=== PATIENT | female | born 1930 | race Caucasian/White ===

== ENCOUNTER → 2017-10-04 | Outpatient (CLI) | payer OTHER ==
[~2017-10-04] MED LIST: LEVOTHYROXIN0.075 MG PO; LISINOPRIL2.5 MG PO; MACROBID 100 M100 M2 PO; METFORMIN HCL500 MG PO; NABUMETONE 750750 M1 PO; OCUVITE TABLET1 EAC1 PO; PRAVACHOL20 MG PO; TOLTERODINE TART2 M1 PO; VITAMIN D 5050000 I1 PO
[2017-10-04 15:54] LABS: CALCIUM 8.9 mg/dL (8.5-10.1); CREATININE 0.9 mg/dL (0.6-1.3); POTASSIUM 4.3 mmol/L (3.5-5.1)
== END ==
LOC: M.CT 10-01 17:00 → M.LAB 15:32 → M.CT 17:00
PROVIDERS: Internal Medicine Nephrology
DX: K44.9 Diaphragmatic hernia without obstruction or gangrene (principal); E87.1 Hypo-osmolality and hyponatremia; R63.4 Abnormal weight loss; M16.0 Bilateral primary osteoarthritis of hip

== ENCOUNTER → 2017-10-09 | Outpatient (CLI) | payer OTHER ==
[2017-10-09 16:12] LABS: CALCIUM 8.7 mg/dL (8.5-10.1); CREATININE 0.9 mg/dL (0.6-1.3); POTASSIUM 4.3 mmol/L (3.5-5.1)
== END ==
LOC: M.LAB 15:51
PROVIDERS: Internal Medicine Nephrology
DX: E87.1 Hypo-osmolality and hyponatremia (principal)

== ENCOUNTER → 2018-05-07 | Outpatient (CLI) | payer OTHER ==
[2018-05-07 17:00] LABS: ABSOLUTE BASOPHILS 0.1 thou/uL (0.0-0.2); ABSOLUTE EOSINOPHILS 0.3 thou/uL (0.0-0.7); ABSOLUTE LYMPHOCYTES 1.5 thou/uL (0.8-5.3); ABSOLUTE MONOCYTES 0.4 thou/uL (0.0-1.2); BASOPHILS 1.7 %; EOSINOPHILS 4.1 %; HEMATOCRIT 39.4 % (37.0-47.0); HEMOGLOBIN 13.7 gm/dL (12.0-15.0); LYMPHOCYTES 23.6 %; MCH 34.8 pg (26.0-34.0); MCHC 34.8 g/dL (28.0-37.0); MCV 99.9 fL (80.0-100.0); MONOCYTES 6.5 %; MPV 6.8 fl. (7.2-11.1); NUCLEATED RBCS 0 /100WBC; PLATELET COUNT* 220 thou/uL (150-400); POLYS 64.1 %; RBC 3.94 mil/uL (4.20-5.00); RDW-CV 12.1 % (10.5-14.5); WBC 6.3 thou/uL (4.0-11.0)
[2018-05-07 17:15] LABS: ALBUMIN 3.7 g/dL (3.4-5.0); CREATININE 0.9 mg/dL (0.6-1.3); POTASSIUM 4.3 mmol/L (3.5-5.1); TOTAL BILIRUBIN 0.6 mg/dL (<0.1-1.0); TOTAL PROTEIN 7.1 g/dL (6.4-8.2)
[2018-05-07 18:00] LABS: ESR (SEDRATE) 1 mm/hr (0-30)
== END ==
LOC: M.LAB 16:42
PROVIDERS: Psychiatry & Neurology Neuromuscular Medicine
DX: M62.81 Muscle weakness (generalized) (principal); G14 Postpolio syndrome; R93.89 Abnormal findings on diagnostic imaging of other specified body structures; R26.9 Unspecified abnormalities of gait and mobility; M21.371 Foot drop, right foot

== ENCOUNTER → 2018-05-14 | Outpatient (CLI) | payer OTHER | LOC: M.MRI 05-01 15:44 | DX: M41.86 Other forms of scoliosis, lumbar region (principal); M47.896 Other spondylosis, lumbar region; M62.81 Muscle weakness (generalized); G14 Postpolio syndrome; R93.89 Abnormal findings on diagnostic imaging of other specified body structures; R26.9 Unspecified abnormalities of gait and mobility; M21.371 Foot drop, right foot ==

== ENCOUNTER → 2019-05-23 | Outpatient (CLI) | payer OTHER | LOC: M.MRI 08:30 | DX: M50.321 Other cervical disc degeneration at C4-C5 level (principal); M12.88 Other specific arthropathies, not elsewhere classified, other specified site; M25.78 Osteophyte, vertebrae; M21.371 Foot drop, right foot; G14 Postpolio syndrome; M41.84 Other forms of scoliosis, thoracic region; K44.9 Diaphragmatic hernia without obstruction or gangrene ==

== ENCOUNTER 2019-06-12 23:45 | Emergency (ER) | payer OTHER ==
[~2019-06-12] VITALS: Ht 162.6 cm; Wt 55.2 kg
[2019-06-13] MEDS ORDERED: PANTOPRAZOLE SO40 M1 PO (00:01)
[2019-06-13] MEDS ORDERED: LEVO-T100 MCG PO (00:01)
[2019-06-13] MEDS ORDERED: MYRBETRIQ25 MG PO (00:02)
[2019-06-13] MEDS ORDERED: NABUMETONE 500500 M2 PO (00:02)
[2019-06-13] MEDS ORDERED: NIFEDIPINE ER30 M1 PO (00:03)
[2019-06-13] MEDS ORDERED: CARBIDOPA-LEVO1 EAC9 PO (00:03)
[2019-06-13] MEDS ORDERED: OCUVITE ADULT1 EAC2 PO (00:04)
[2019-06-13] MEDS ORDERED: CENTRUM ADULTS1 EACH PO (00:04)
[2019-06-13] MEDS ORDERED: LEXAPRO 10 MG T10 M2 PO (00:05)
[2019-06-13 00:22] LABS: ABSOLUTE BASOPHILS 0.1 thou/uL (0.0-0.2); ABSOLUTE EOSINOPHILS 0.4 thou/uL (0.0-0.7); ABSOLUTE LYMPHOCYTES 5.7 thou/uL (0.8-5.3); ABSOLUTE MONOCYTES 0.8 thou/uL (0.0-1.2); ABSOLUTE NEUTROPHILS 3.8 thou/uL (1.6-8.1); BASOPHILS 0.9 %; EOSINOPHILS 3.7 %; HEMATOCRIT 41.7 % (37.0-47.0); HEMOGLOBIN 14.7 gm/dL (12.0-15.0); LYMPHOCYTES 52.9 %; MCH 35.3 pg (26.0-34.0); MCHC 35.1 g/dL (28.0-37.0); MCV 100.4 fL (80.0-100.0); MONOCYTES 7.1 %; MPV 7.5 fl. (7.2-11.1); NUCLEATED RBCS 0 /100WBC; PLATELET COUNT* 222 thou/uL (150-400); POLYS 35.4 %; RBC 4.16 mil/uL (4.20-5.00); RDW-CV 12.3 % (10.5-14.5); WBC 10.7 thou/uL (4.0-11.0)
[2019-06-13 00:33] LABS: INR 1.1; PROTIME 11.1 Seconds (9.20-11.50)
[2019-06-13 00:33] LABS: URINE BILIRUBIN NEGATIVE (Negative); URINE BLOOD NEGATIVE (Negative); URINE CLARITY CLEAR; URINE COLOR YELLOW; URINE GLUCOSE-RANDOM NEGATIVE (Negative); URINE KETONES NEGATIVE (Negative); URINE LEUKOCYTES-REFLEX 1+ (Negative); URINE NITRITE-REFLEX NEGATIVE (Negative); URINE PROTEIN NEGATIVE (Negative); URINE SPECIFIC GRAVITY 1.015 (1.005-1.030); URINE UROBILINOGEN 0.2 E.U./dl (0.2-1.0)
[2019-06-13 00:42] LABS: BACTERIA-REFLEX >30 Many /HPF (None Seen); CASTS None Seen /LPF (None Seen); CRYSTALS None Seen /LPF (None Seen); MUCUS 0-3 Light strn/LPF (None Seen); SQUAMOUS 0-3 Few /LPF (0-3); TRANSITIONAL EPITHEL CELL 0-3 Few /LPF (None Seen); URINE WBC-REFLEX >25 Many /HPF (0-5); WBC CLUMPS Few (None Seen)
[2019-06-13 00:44] LABS: CALCIUM 9.3 mg/dL (8.5-10.1); CREATININE 0.9 mg/dL (0.6-1.3); POTASSIUM 4.1 mmol/L (3.5-5.1)
[2019-06-13 00:55] LABS: ALBUMIN 3.8 g/dL (3.4-5.0); TOTAL BILIRUBIN 0.5 mg/dL (<0.1-1.0)
[2019-06-13 03:35] VITALS: BP 144/81
--- NOTE | 2019-06-13 12:18 | EKG ---
[place] [address] ELECTROCARDIOGRAM REPORT Name: QUINN MERCHANT Room: [facility]#: [id number] Admission: 06/12/19 Attend Phys: Discharge: 06/13/19 Date of : 34 Report #: [id number] THIS REPORT FOR: //name// [facility] ED Test Date: 2019-06-12 Test Time: 23:59:46 Pat Name: QUINN MERCHANT Department: Room: Gender: F Distribution Designer: AKILA : [id number] Requested By: Barbara Jett Order Number: [id number] MD: Jay Bernal Measurements Intervals [place] Rate: 91 P: 65 SC: 157 QRS: 48 QRSD: 91 T: 24 QT: 373 QTc: 459 Interpretive Statements Sinus rhythm Consider left ventricular hypertrophy Repol abnrm suggests ischemia, inferior and anterolateral Compared to ECG 10/06/2015 12:28:35 Early repolarization now present Possible ischemia now present Electronically Signed On 06-13-2019 12:18:01 [employer] by Jay Bernal [email or web address] <ELECTRONICALLY SIGNED> By: Jay Bernal MD, [facility] 06/13/19 1218 [id number] Jay Bernal MD, [facility] /EPI
== END 2019-06-13 03:35 | disposition short-term general hospital (02) ==
LOC: M.ERS 23:45
PROVIDERS: Emergency Medicine
DX: S06.300A Unspecified focal traumatic brain injury without loss of consciousness, initial encounter (principal); I10 Essential (primary) hypertension; E78.5 Hyperlipidemia, unspecified; E11.9 Type 2 diabetes mellitus without complications; Z90.89 Acquired absence of other organs; Z90.710 Acquired absence of both cervix and uterus; W18.39XA Other fall on same level, initial encounter; Y92.89 Other specified places as the place of occurrence of the external cause; Y93.89 Activity, other specified; Y99.8 Other external cause status